=== PATIENT | female | born 1985 | race Caucasian/White ===

== ENCOUNTER 2016-05-20 17:44 | Outpatient (CLI) | payer OTHER ==
[~2016-05-20] VITALS: Ht 160 cm; Wt 78.9 kg
[~2016-05-20 17:44] MED LIST: Motrin PO; Percocet 5/325,Endoc PO
[2016-05-20 18:01] VITALS: BP 119/71
[2016-05-20 18:52] VITALS: BP 138/87
[2016-05-20 18:59] VITALS: BP 125/77
[2016-05-20] MEDS ORDERED: PRENATAL TABLE1 EAC3 PO (19:09)
[2016-05-20] MEDS ORDERED: Iron PO (19:12)
[2016-05-21] MEDS ORDERED: IRON325 M1 PO (01:46)
[2016-05-21] MEDS ORDERED: IBUPROFEN800 MG PO (03:42)
== END 2016-05-20 19:25 | disposition home or self-care (01) ==
LOC: LDRP-OP 17:44 → 2WEST 17:45
DX: O26.893 Other specified pregnancy related conditions, third trimester (principal); Z3A.40 40 weeks gestation of pregnancy
CPT/HCPCS: G0378

== ENCOUNTER 2016-05-21 01:14 | Inpatient (IN) | payer OTHER ==
[~2016-05-21] VITALS: Ht 160 cm; Wt 81.8 kg
[2016-05-21] VITALS (10 sets, daily range): BP systolic 108–139; BP diastolic 63–91
[~2016-05-21 01:14] MED LIST changes: +Iron PO; +PRENATAL TABLE1 EAC3 PO
[2016-05-21] MEDS ORDERED: IRON325 M1 PO (01:46)
[2016-05-21 02:34] LABS: EOSINOPHIL (%) 0.5 % (0-5); EOSINOPHIL COUNT 0.1 K/uL (0-0.3); HEMATOCRIT 35.3 % (36.0-46.0); IMMATURE GRANULOCYTE (%) 0.5 % (0.0-0.7); IMMATURE GRANULOCYTE COUNT 0.6 K/uL; LYMPHOCYTE COUNT 2.1 K/uL (1.0-2.8); MCH 28.4 PG (29.0-34.0); MCHC 33.4 G/DL (30.0-36.0); MCV 85.1 FL (83-99); MEAN PLAT.VOLUME 10.4 uM^3 (9.5-12.4); MONOCYTE (%) 7.1 % (3-12); MONOCYTE COUNT 0.9 K/uL (0-0.8); NEUTROPHIL COUNT 10.1 K/uL (1.8-6.4); PLATELET COUNT 215 K/uL (156-360); RBC DIS.WIDTH-CV 14.3 % (11.8-14.6); RBC DIS.WIDTH-SD 43.3 % (39-53); RED BLOOD COUNT 4.15 M/uL (3.80-5.20); WHITE BLOOD COUNT 13.3 K/uL (4.1-10.2)
[2016-05-21] MEDS ORDERED: IBUPROFEN800 MG PO (03:42)
[2016-05-22 08:03] VITALS: BP 111/63
== END 2016-05-22 11:20 | disposition home or self-care (01) | DRG 775 ==
LOC: LDRP-OP 01:14 → 2WEST 01:15 → LDRP-OP 06-16 19:40
PROVIDERS: Midwife
DX: O26.03 Excessive weight gain in pregnancy, third trimester (principal); O69.81X0 Labor and delivery complicated by cord around neck, without compression, not applicable or unspecified; O70.0 First degree perineal laceration during delivery; Z3A.40 40 weeks gestation of pregnancy; Z37.0 Single live birth
CPT/HCPCS: 85025; G0378; J2590